=== PATIENT | female | born 1955 | race Caucasian/White ===

== ENCOUNTER 2022-04-23 19:46 | Emergency (ER) | payer MEDICARE, OTHER, SELFPAY ==
--- NOTE | 2022-04-23 19:49 | ED.URI ---
HPI - URI/Sore Throat General Chief Complaint: Upper Respiratory Infection Stated Complaint: Fatigue,Chills,Headache Time Seen by Provider: 04/23/22 19:49 Source: patient Mode of arrival: ambulatory Limitations: no limitations History of Present Illness HPI Narrative: Ms. Paez is a 66-year-old female patient presenting to the clinic today with complaints of fatigue, chills, headache and right upper quadrant pain that has resolved. She reports she took an at home UTI test and is concerned that she may have a urinary tract infection. States that she has had urinary incontinence and frequency for several days. Reports her other symptoms began this morning and have resolved Related Data Home Medications Medication Instructions Recorded Confirmed No Home Medications 04/23/22 04/23/22 Allergies Allergy/AdvReac Type Severity Reaction Status Date / Time hexachlorophene AdvReac Mild Hives Verified 04/23/22 20:06 ibuprofen AdvReac Mild RASH Verified 04/23/22 20:06 Review of Systems Review of Systems: Pertinent positives per HPI. Patient denies any rash, visual changes, dizziness, cough, runny nose, sore throat, shortness of breath, chest pain, palpitations, nausea, vomiting, diarrhea, constipation. PMFSH Family History Family History Other Cerebrovascular accident Diabetes mellitus Family history of arthritis Family history of heart disease in male family member before age 55 Social History Social History Smoking status: Never smoker Alcohol intake: current Comments At the time of my signature, I reviewed and agree with the nursing past medical, surgical, social, and family history. There is no relevant family history pertinent to the patient complaint. Exam Narrative: General: Well-developed, well nourished, in no apparent distress Head: Normocephalic, atraumatic Eyes: Pupils equally round and reactive to light bilaterally, EOM intact, sclera and conjunctive clear, no discharge, lids normal Ears: TMs intact and clear, ear canals clear, no drainage, grossly hearing normal. Nose: Nares patent, no discharge, no inflammation, no sinus tenderness. Mouth: Oropharynx without lesions or masses, good dentition, MMM. Neck: Supple, trachea midline, no enlargement of anterior or posterior cervical nodes, no thyroid masses or goiter palpable. Cardio: Regular rate and rhythm, s1 and s2 normal, no murmur appreciated. Resp: Clear to auscultation bilaterally anteriorly and posteriorly, no rhonchi, rales, wheezing or rubs Abdomen: Soft, pliable, bowel sounds present in all 4 quadrants, nontender to palpation, no suprapubic tenderness to palpation, no organomegaly, no CVAT tenderness Course Course Emergency Course: Portions of this record may have been created with voice recognition software. Level of Care: Express Care Visit Vital Signs Vital signs: Vital signs reviewed MDM - URI/Sore Throat MDM Narrative Medical decision making narrative: At the time of visit patient is resting comfortably on the exam table. UA shows 1+ blood in her urine. Negative for protein, leukocytes, or nitrates. COVID testing negative in the clinic. Patient reports right upper quadrant pain that has resolved as well as fatigue, chills, and headache that have all improved. Recommend follow-up with your PCP to investigate hematuria, urinary frequency, urgency patient has a history of bladder cancer in her family. Supportive measures were discussed with the patient and she voiced understanding of discharge instructions and agrees to treatment plan. Recommend going to the ED if symptoms worsen for further evaluation and treatment. Differential Diagnosis Differential diagnosis: Likely other (UTI, gallstones, viral syndrome) Discharge Plan Discharge Clinical Impression: Abdominal pain, acute, right upper
[2022-04-23 20:00] VITALS: BP 117/66; PULSE 85; RESP 18; TEMP 37.1; O2SAT 98
== END 2022-04-23 20:28 | disposition home or self-care (01) ==
LOC: EXPTROY 19:54
PROVIDERS: Emergency Provider Nurse Practitioner Family; PCP Family Medicine
DX: R10.11 Right upper quadrant pain (principal); R35.0 Frequency of micturition; R39.15 Urgency of urination; R53.83 Other fatigue; R31.29 Other microscopic hematuria
CPT/HCPCS: 81003; 99212; G0463

== ENCOUNTER 2022-05-07 14:45 | Outpatient (CLI) | payer MEDICARE, OTHER, SELFPAY ==
--- NOTE | ~2022-05-07 | CT_ITS ---
EXAMINATION: CT abdomen pelvis wo/w con DATE: 05/07/2022 15:46 INDICATION: Hematuria TECHNIQUE: Computed tomography (CT) of the abdomen and pelvis was performed without and subsequently with 130 CC Omnipaque 300 intravenous contrast. Automated exposure control and iterative reconstructi on technique were employed. Exam dose: 885.90 mGy-cm total exam DLP. COMPARISON: None. FINDINGS: The lung bases are clear of infiltrate or consolidation. There is minimal discoid atelectas is or scarring at the base of the lingula and lower lobes. Borderline heart size. No pericardial or pleural effusion. Small sliding hiatal hernia. 7.5 mm probable cyst of right hepatic lobe adjacent to gallbladder. The liver, gallbladder, bile duct s, pancreas, pancreatic duct and spleen are otherwise unremarkable. The adrenal glands are unremarkable. No urinary tract calculus or hydroureteronephrosis is detected. There is asymmetric fullness and mild to moderate hydronephrosis of the right renal collecting struct ures, possibly due to ureteropelvic disproportion. No hydronephrosis on the left. No filling defect o f the renal collecting structures, ureters on either side. No renal mass lesion is evident. No urinar y bladder mass lesion is noted. No evidence of appendicitis. No bowel obstruction, bowel wall thickening, pneumatosis or intraperiton eal free air. Small fat-containing umbilical hernia. There is degenerative change of the thoracic and lumbar spine including severe degenerative change at the apophyseal joints of the lumbar and lumbosacral area with associated grade 1 anterolisthesis at L3-4, L4-5 and L5-S1. . No suspicious osteolytic or osteoblastic lesions are noted. Bilateral hip osteoarthritis Degenerative changes of the thoracic and lumbar spine including prominent degenerative change at the apophyseal joints of the lumbar and lumbosacral area and associated grade 1 anterolisthesis at L3-4, L4-5 and L5-S1. Bilateral hip osteoarthritis. IMPRESSION: Mild to moderate right hydronephrosis, likely secondary to ureteropelvic disproportion No urinary tract calculus or urinary tract obstruction is noted otherwise Reviewed, dictated and finalized at [facility]. Reviewed, dictated and finalized at [facility]. IMPRESSION: Mild to moderate right hydronephrosis, likely secondary to uretero pelvic disproportion No urinary tract calculus or urinary tract obstruction is noted otherwise
[2022-05-07 15:24] LABS: Estimated Glomerular Filt Rate > 60
== END 2022-05-07 14:46 | disposition home or self-care (01) ==
PROVIDERS: PCP Family Medicine; Visit Provider Family Medicine
DX: R31.9 Hematuria, unspecified (principal); N13.30 Unspecified hydronephrosis
CPT/HCPCS: 74178; Q9967

== ENCOUNTER 2022-05-13 10:48 | Emergency (ER) | payer MEDICARE, OTHER, SELFPAY ==
[2022-05-13 10:57] VITALS: BP 116/69; PULSE 67; RESP 18; TEMP 36.3; O2SAT 98
--- NOTE | 2022-05-13 11:29 | ED.GENADULT ---
HPI - General Adult General Chief complaint: Skin/Abscess/Foreign Body Stated complaint: Rash History of Present Illness HPI narrative: Patient is a 66-year-old female who presents to the [facility] via POV for evaluation of a generalized rash that began 4 days ago. Additionally, patient reports that she had a abdominal CT with contrast dye on Saturday. Saturday afternoon she began experiencing nausea, vomiting, fatigue, blurry vision, and headache. She thought these sx were migraine related, took tylenol and went to bed. sx resolved. Saturday am she woke up with erythematous, pruritic rash. No relief with Benadryl. Hx of allergy to some pain med that produced a similar rash. Related Data Allergies Allergy/AdvReac Type Severity Reaction Status Date / Time iohexol AdvReac Intermediate Hives Verified 05/13/22 11:40 [From contrast - CT, X-RAY] hexachlorophene AdvReac Mild Hives Verified 05/13/22 10:57 ibuprofen AdvReac Mild RASH Verified 05/13/22 10:57 Review of Systems Review of Systems: Denies recent/new changes in soaps, perfumes, lotions, detergents, and shampoos. Denies working with chemicals. Denies new or changes in medications/foods. Pertinent negatives fever, chills, sweats, change in appetite, malaise, poor p.o. intake, recent weight loss, change in appetite, myalgias, lymphadenopathy, LOC, dizziness, burning sensation, petechiae, blistering, swelling, pruritus, streaking, warmth, lesions, easy bruising, lip/tongue/throat swelling, facial swelling, abdominal pain, nausea, vomiting, numbness, tingling, loss of sensation, cough, wheezing, chest pain, and heart palpitations/murmurs. [facility] Family History Family History Other Cerebrovascular accident Diabetes mellitus Family history of arthritis Family history of heart disease in male family member before age 55 Social History Social History Smoking status: Never smoker Alcohol intake: current Comments I have reviewed and agree with the patient's past medical, surgical, social, and family hx as documented by the RN. There is no relevant family history pertinent to the presenting complaint. Exam Narrative: GENERAL: Well-appearing, well-nourished, and in no acute distress. HEAD: Normocephalic, atraumatic. No facial swelling appreciated. EYES: PERRLA and EOMI. No evidence of erythema, swelling, or drainage. ENT: Nares clear, no rhinorrhea or epistaxis. Mucous membranes moist and pink. Uvula is midline without erythema and swelling. No evidence of obstruction, drooling, or pooling of secretions. Breath odor and voice normal. NECK: Supple. No Lymphadenopathy or nuchal rigidity appreciated. CHEST: Bilateral lung mejia are clear to auscultation. No respiratory distress. No evidence of cough or pleuritic cp upon examination. HEART: Regular rate and rhythm. No murmur, gallop, or rub heard. EXTREMITIES: Normal range of motion. No edema. SKIN: Warm, dry. Moderate generalized rash consistent with drug rash. No facial involvement. NEURO: No focal deficits. Alert and oriented x3. SPECIAL OBSERVATIONS: Smiling. Laughing. No evidence of discomfort. C/O of of proportion to exam. Course Course Emergency Course: Spoke with pharmacy at 1400 regarding prednisone rx. Changed RX from 20mg daily to 60mg daily. New RX: Prednisone 20 mg tabs: take 3 tabs by oral route daily x5 days. Disp 15 tabs 0RF Level of Care: Express Care Visit Vital Signs Vital signs: Vital Signs Temperature 97.3 F L 05/13/22 10:57 Pulse Rate 67 05/13/22 10:57 Respiratory Rate 18 05/13/22 10:57 Blood Pressure 116/69 05/13/22 10:57 Pulse Oximetry 98 05/13/22 10:57 Oxygen Delivery Room Air 05/13/22 10:57 Temperature 97.3 F L 05/13/22 10:57 Pulse Rate 67 05/13/22 10:57 Respiratory Rate 18 05/13/22 10:57 Blood Pressure 116/69 05/13/22
== END 2022-05-13 11:42 | disposition home or self-care (01) ==
PROVIDERS: Emergency Provider Nurse Practitioner Family; PCP Family Medicine
DX: R21 Rash and other nonspecific skin eruption (principal); T50.8X5A Adverse effect of diagnostic agents, initial encounter; M19.90 Unspecified osteoarthritis, unspecified site; Z85.820 Personal history of malignant melanoma of skin
CPT/HCPCS: 99213; G0463

== ENCOUNTER → 2022-08-02 15:00 | Outpatient (CLI) | payer MEDICARE, OTHER, SELFPAY ==
--- NOTE | ~2022-08-02 | XR_ITS ---
XR hip LT min 2V 08/02/2022 15:19 Indication: Left hip pain after recent fall Procedure: 2 views left hip Comparison: No prior studies for comparison. Findings: There is moderate osteoarthritis of the left hip. No fracture, subluxation or dislocation. Sacral foramen are symmetric. Surrounding osseous structures and soft tissues are unremarkable. Impression: 1: No acute fracture. 2: Moderate osteoarthritis of the left hip. Reviewed, dictated and finalized at [facility]. Impression: 1: No acute fracture. 2: Moderate osteoarthritis of the left hip.
== END ==
PROVIDERS: PCP Orthopaedic Surgery; Visit Provider Physician Assistant
DX: M16.12 Unilateral primary osteoarthritis, left hip (principal)
CPT/HCPCS: 73502

== ENCOUNTER → 2023-05-16 13:17 | Outpatient (CLI) | payer MEDICARE, OTHER, SELFPAY ==
--- NOTE | ~2023-05-16 | XR_ITS ---
XR knee RT 3V DATE: 05/16/2023 13:43 INDICATION: Right knee pain TECHNIQUE: AP, lateral, sunrise views COMPARISON: None FINDINGS: There is osteopenia. There is mild particular spurring at the patellofemoral joint consistent with mild osteoarthritis. Th ere is moderate loss of joint space and moderate periarticular spurring at the lateral compartment. Mild suprapatellar knee joint effusion is suggested. There is osteopenia. No fracture or dislocation, periosteal reaction or bone destruction. No radiopaq ue interarticular loose body or, calcinosis. IMPRESSION: Osteoarthritis, most prominent at the lateral compartment Suspected mild knee joint effusion Osteopenia Reviewed, dictated and finalized at [facility].
== END ==
PROVIDERS: PCP Family Medicine; Visit Provider Family Medicine
DX: M17.11 Unilateral primary osteoarthritis, right knee (principal); M85.861 Other specified disorders of bone density and structure, right lower leg
CPT/HCPCS: 73562

== ENCOUNTER 2024-01-23 19:34 | Emergency (ER) | payer MEDICARE, OTHER, SELFPAY ==
--- NOTE | 2024-01-23 19:36 | ED.SKABFB ---
HPI - Skin/Abscess/Foreign Bdy General Chief complaint: Skin/Abscess/Foreign Body Stated complaint: Body Rash Time Seen by Provider: 01/23/24 19:36 Source: patient Mode of arrival: ambulatory Limitations: no limitations History of Present Illness HPI narrative: Patient is a 68-year-old female that presents with rash to trunk since Saturday. Patient states it is not itchy but did spread to top of the thighs today. Denies any fever, chills, nausea, vomiting, diarrhea, congestion, sore throat, cough. Did use new soap this weekend at hotel. Related Data Home Medications Medication Instructions Recorded Confirmed aspirin 81 mg tablet,delayed 81 mg PO DAILY 09/03/22 01/23/24 release (Adult Aspirin Regimen) Allergies Allergy/AdvReac Type Severity Reaction Status Date / Time iohexol AdvReac Intermediate Hives Verified 01/23/24 19:46 [From contrast - CT, X-RAY] hexachlorophene AdvReac Mild Hives Verified 01/23/24 19:46 ibuprofen AdvReac Mild RASH Verified 01/23/24 19:46 Review of Systems Review of Systems: All systems reviewed & are unremarkable except as noted in HPI and below Constitutional: Constitutional: Denies body ache(s), Denies chills, Denies fatigue, Denies fever(s), Denies headache(s), Denies malaise and Denies weakness Eyes: Eyes: Denies blurry vision, Denies irritation and Denies loss of vision ENT: Denies otalgia, Denies headache(s), Denies nasal discharge, Denies sinus pain and Denies sore throat Cardiovascular: Cardiovascular: Denies chest pain, Denies irregular heart rhythm and Denies dyspnea Respiratory: Respiratory: Denies dyspnea Gastrointestinal: Gastrointestinal: Denies abdominal pain, Denies melena, Denies hematochezia, Denies diarrhea, Denies nausea and Denies vomiting Musculoskeletal: Musculoskeletal: Denies back pain, Denies myalgias and Denies arthralgias Integumentary/Breasts: Skin/Breast: Denies pruritus and Reports rash Neurologic: Denies headache(s), Denies loss of vision and Denies weakness Psychiatric: Psychiatric: Reports no additional psychiatric complaints Endocrine: Endocrine: Denies fatigue PMFSH Past Medical History Medical History High cholesterol Hx of thyroid cyst Lumbar spondylosis Surgical History Surgical History H/O lumpectomy H/O: Family History Family History Mother History of multiple strokes Father History of multiple strokes Bladder cancer Other Cerebrovascular accident Diabetes mellitus Family history of arthritis Family history of heart disease in male family member before age 55 Social History Social History Smoking status: Never smoker Alcohol intake: current Substance use: never Lack of Transportation: No Lack of Food: Never True Current Housing: I Have Housing Concerned About Future Housing: No Difficulty Paying Gas/Electric Bills: No Difficulty Paying for Meds: No Currently Unemployed: No Education: Bachelor's Degree Difficulty w/ Childcare or Family Care: No Living arrangements: with family Occupation/Education: occupation Gender identity (if verbalized by the patient): Female Comments At time of signature, agree with nursing past medical, surgical, social and family history. There is no relevant family history pertinent to the presenting complaint. Exam Const: General: cooperative, healthy appearing, comfortable, no acute distress and well nourished Nutritional Appearance: well nourished Orientation/consciousness: patient oriented x3 Limitations: no limitations HENMT: Head: normal to inspection, normocephalic and atraumatic Ears: hearing grossly normal bilaterally and external ears normal Face/Nose/Sinus: Normal external nose present, normal facial exam and
[2024-01-23 19:43] VITALS: BP 115/65; PULSE 79; RESP 18; TEMP 36.7; O2SAT 98
== END 2024-01-23 20:01 | disposition home or self-care (01) ==
PROVIDERS: Emergency Provider Nurse Practitioner Family; PCP Family Medicine
DX: T78.40XA Allergy, unspecified, initial encounter (principal); E78.00 Pure hypercholesterolemia, unspecified; M47.816 Spondylosis without myelopathy or radiculopathy, lumbar region; Z79.82 Long term (current) use of aspirin
CPT/HCPCS: 99213; G0463

== ENCOUNTER 2024-04-03 14:48 | Emergency (ER) | payer MEDICARE, OTHER, SELFPAY ==
--- NOTE | ~2024-04-03 | XR_ITS ---
EXAMINATION: XR foot LT min 3V DATE: 04/03/2024 16:37 INDICATION: Left foot pain. TECHNIQUE: 4 views of left foot were obtained. COMPARISON: None. FINDINGS: Bone alignment is normal. No fracture. There is moderate osteoarthritis of first metatarsop halangeal joint and mild osteoarthritis of some of the midfoot joints. There are enthesophytes at the posterior and plantar aspects of calcaneal tuberosity. IMPRESSION: 1. Polyarticular osteoarthritis. Reviewed, dictated and finalized at location [facility].
--- NOTE | ~2024-04-03 | XR_ITS ---
EXAMINATION: XR hip LT min 2V DATE: 04/03/2024 16:36 INDICATION: Left hip pain. TECHNIQUE: 2 views of left hip were obtained. COMPARISON: Left hip radiographs 08/02/2022 FINDINGS: There is lumbar levocurvature. No fracture. There is moderate left hip osteoarthritis. Oste itis pubis is noted. IMPRESSION: 1. Moderate left hip osteoarthritis. Reviewed, dictated and finalized at location [facility].
[2024-04-03 15:04] VITALS: BP 118/57; PULSE 83; RESP 16; TEMP 36.7; O2SAT 97
--- NOTE | 2024-04-03 17:46 | ED.BACK ---
HPI - Back Pain/Injury General Chief Complaint: Back Pain/Injury Stated Complaint: Left hip pain Time Seen by Provider: 04/03/24 17:02 Source: patient Mode of arrival: ambulatory Limitations: no limitations History of Present Illness HPI Narrative: This is a 68-year-old female who presents to the ED for chief complaint of chronic left foot pain and chronic left lower back pain. The back pain was flared up this week after doing some work outside. Reports foot pain has been going on for several years. Reports that it feels like a burning to the toes at times. She has concern for possible gout. Denies numbness, weakness, bowel or bladder problems, injuries to the back. States the pain is in the left lower back and radiates up into the muscles at times. 3rd complaint of bug bite to the left kaye that has been going on for 2 years . reports it feels like the venom from the bug bite 2 years ago sometimes will go down from the kaye into the ankle at times causing bumps and pain. Denies any further complaints Related Data Home Medications Medication Instructions Recorded Confirmed aspirin 81 mg tablet,delayed 81 mg PO DAILY 09/03/22 01/23/24 release (Adult Aspirin Regimen) Allergies Allergy/AdvReac Type Severity Reaction Status Date / Time iohexol AdvReac Intermediate Hives Verified 01/23/24 19:46 [From contrast - CT, X-RAY] hexachlorophene AdvReac Mild Hives Verified 01/23/24 19:46 ibuprofen AdvReac Mild RASH Verified 01/23/24 19:46 Review of Systems Review of Systems: All systems as dictated in HPI [facility] Past Medical History Medical History High cholesterol Hx of thyroid cyst Lumbar spondylosis Surgical History Surgical History H/O lumpectomy H/O: Family History Family History Mother History of multiple strokes Father History of multiple strokes Bladder cancer Other Cerebrovascular accident Diabetes mellitus Family history of arthritis Family history of heart disease in male family member before age 55 Social History Social History Smoking status: Never smoker Alcohol intake: current Substance use: never Lack of Transportation: No Lack of Food: Never True Current Housing: I Have Housing Concerned About Future Housing: No Difficulty Paying Gas/Electric Bills: No Difficulty Paying for Meds: No Currently Unemployed: No Education: Bachelor's Degree Difficulty w/ Childcare or Family Care: No Living arrangements: with family Occupation/Education: occupation Gender identity (if verbalized by the patient): Female Exam Narrative: GENERAL: Well-appearing, well-nourished, and in no acute distress. HEAD: Normocephalic, atraumatic. EYES: PERRLA and EOMI. ENT: Nares clear, no rhinorrhea or epistaxis. Mucous membranes moist. Oropharynx without tonsillar hypertrophy exudate or other lesions. NECK: Supple. No adenopathy or masses. CHEST: No respiratory distress. Clear to auscultation. No wheezes rales or rhonchi HEART: Regular rate and rhythm. No murmur heard. Normal peripheral pulses. ABDOMEN: Soft, nontender, nondistended, normal active bowel sounds. MSK: Normal range of motion. No edema. No midline spinal tenderness. 5/5 strength and sensation in the upper and lower extremities. ambulatory without difficulty SKIN: Warm, dry, no rash. NEURO: Alert and oriented x3. No focal deficits. PSYCH: Normal mood and affect. Course Vital Signs Vital signs: Vital Signs Temperature 98.1 F 04/03/24 15:04 Pulse Rate 83 04/03/24 15:04 Respiratory Rate 16 04/03/24 15:04 Blood Pressure 118/57 L 04/03/24 15:04 Pulse Oximetry 97 04/03/24 15:04 Temperature 98.1 F 04/03/24 15:04 Pulse Rate 83
[2024-04-03 18:11] VITALS: BP 127/62; PULSE 67; RESP 18; O2SAT 99
== END 2024-04-03 18:13 | disposition home or self-care (01) ==
PROVIDERS: Emergency Provider Physician Assistant; PCP Family Medicine
DX: M53.3 Sacrococcygeal disorders, not elsewhere classified (principal); M79.672 Pain in left foot; G89.29 Other chronic pain; E78.5 Hyperlipidemia, unspecified; M47.816 Spondylosis without myelopathy or radiculopathy, lumbar region
CPT/HCPCS: 73502; 73630; 99284

== ENCOUNTER 2024-10-30 11:23 | Emergency (ER) | payer MEDICARE, OTHER, SELFPAY ==
--- NOTE | ~2024-10-30 | XR_ITS ---
EXAMINATION: XR chest 2V DATE: 10/30/2024 12:12 INDICATION: Cough. TECHNIQUE: Frontal and lateral views of the chest were obtained on 3 radiographs. COMPARISON: CT abdomen and pelvis 05/07/2022 FINDINGS: There is no pneumonia, pleural effusion, or pneumothorax. The heart size is normal. IMPRESSION: 1. No acute cardiopulmonary disease. Reviewed, dictated and finalized at location A. [employer]
--- NOTE | 2024-10-30 11:27 | ED.URI ---
HPI - URI/Sore Throat General Chief Complaint: Upper Respiratory Infection Stated Complaint: cough Time Seen by Provider: 10/30/24 11:26 Source: patient Mode of arrival: ambulatory Limitations: no limitations History of Present Illness HPI Narrative: Haylie is a 68-year-old female patient presenting to the clinic today with complaints of a cough and chest discomfort with coughing. Initially stated her symptoms started on [place]. She reports she does not feel short of breath and her chest does not hurt unless she is coughing. Cough is nonproductive. Has had cough for a couple weeks and has exposure to mold in her home. States she did have a headache for the past few days. States that the headache is improving with Tylenol. Vomited 1 time on Saturday. No nausea, vomiting or diarrhea since. Denies any known fever, chills, or body aches. States that she tested for COVID and flu and was negative however her tested positive for influenza A. MD elicited complaint: cough, nasal congestion and other (Headache) Related Data Allergies Allergy/AdvReac Type Severity Reaction Status Date / Time iohexol (From contrast - CT, Allergy Intermediate Hives Verified 10/30/24 11:52 X-RAY) hexachlorophene Allergy Mild Hives Verified 10/30/24 11:52 ibuprofen Allergy Mild RASH Verified 10/30/24 11:52 Review of Systems Review of Systems: Pertinent positives per HPI. Patient denies any fever, chills, rash, visual changes, dizziness, shortness of breath, chest pain, palpitations, nausea, vomiting, diarrhea, constipation, abdominal pain, or any urinary issues. PMFSH Past Medical History Medical History Lumbar spondylosis Hx of thyroid cyst High cholesterol Surgical History Surgical History H/O: H/O lumpectomy Family History Family History Mother History of multiple strokes Father History of multiple strokes Bladder cancer Other Cerebrovascular accident Diabetes mellitus Family history of arthritis Family history of heart disease in male family member before age 55 Social History Social History Smoking status: Never smoker Alcohol intake: current Substance use: never Lack of Transportation: No Lack of Food: Never True Current Housing: I Have Housing Concerned About Future Housing: No Difficulty Paying Gas/Electric Bills: No Difficulty Paying for Meds: No Currently Unemployed: No Education: Bachelor's Degree Difficulty w/ Childcare or Family Care: No Living arrangements: with family Occupation/Education: occupation Gender identity (if verbalized by the patient): Female Comments At the time of my signature, I reviewed and agree with the nursing past medical, surgical, social, and family history. There is no relevant family history pertinent to the patient complaint. Exam Narrative: General: Well-developed, well nourished, in no apparent distress Head: Normocephalic, atraumatic Eyes: Pupils equally round and reactive to light bilaterally, EOM intact, sclera and conjunctive clear, no discharge, lids normal Ears: TMs intact and clear, ear canals clear, no drainage, grossly hearing normal. Nose: Nares patent, clear nasal discharge, no inflammation, no sinus tenderness. Mouth: Oral pharynx without lesions or masses, good dentition, MMM. Neck: Supple, trachea midline, no enlargement of anterior or posterior cervical nodes, no thyroid masses or goiter palpable. Cardio: Regular rate and rhythm, s1 and s2 normal, no murmur appreciated. Resp: Diminished in the bases otherwise clear, no rhonchi, rales, wheezing or rubs Course Course Emergency Course: Portions of this record may have been created with voice recognition software. Level of Care: Express Care Visit Vital Signs Vital signs: Vital Signs Temperature 36.1 C L 10/30/24 11:39 Pulse Rate 70 10/30/24 11:39 Respiratory Rate 16 10/30/24 11:39 Blood Pressure 117/61 10/30/24 11:39 Pulse Oximetry 98 10/30/24 11:39 Oxygen Delivery Room Air 10/30/24 11:39 Temperature 36.1 C L 10/30/24 11:39 Pulse Rate 70 10/30/24 11:39 Respiratory Rate 16 10/30/24 11:39 Blood Pressure 117/61 10/30/24 11:39 Pulse Oximetry 98 10/30/24 11:39 Oxygen Delivery Room Air 10/30/24 11:39 Vital signs reviewed MDM - URI/Sore Throat MDM Narrative Medical decision making narrative: At the time of visit patient is resting comfortably on the exam table. Patient appears to be nontoxic. Diagnostics: Chest x-ray was performed and negative for any acute cardiopulmonary process in the clinic today. Plan: I suspect patient has bronchitis. Prescription for albuterol inhaler, prednisone, and Tessalon Perles as sent to the pharmacy. Supportive measures were discussed with the patient and they voiced understanding discharge instructions and agrees to treatment plan. Return precautions reviewed Differential Diagnosis Differential diagnosis: Likely upper respiratory infection, otitis media, sinusitis, viral infection, bronchitis, influenza, pharyngitis and other (COVID) Discharge Plan Discharge Clinical Impression: Bronchitis Patient Disposition: Home, Self-Care Condition: Stable Instructions: Antibiotic Form, Acute Bronchitis (ED) Additional Instructions: Chest x-rays negative for any acute cardiopulmonary process. Take prescription medications only as prescribed albuterol inhaler, prednisone, and Tessalon Perles Increase fluids and stay well hydrated Tylenol/motrin for pain/fever Flonase and OTC antihistamines as directed Vicks vapor rub to open sinuses Sinus rinses for congestion Cepacol spray, cough drops, throat lozenges, warm tea with honey/lemon, gargle salt water to soothe throat BRAT diet for diarrhea Clear liquids x 24 hours then advance as tolerated for nausea/vomiting Go to the ED if you develop a worsening in your condition- high fever not controlled by Tylenol or Motrin, dehydration, weakness, lethargy, shortness of breath, or chest pain. Follow up with your PCP in 3-5 days if symptoms persist. Patient Language: [place] Prescriptions: New benzonatate 200 mg capsule 200 mg PO TID 7 Days Qty: 21 0RF prednisone 20 mg tablet 40 mg PO DAILY 5 Days Qty: 10 0RF albuterol sulfate 90 mcg/actuation HFA aerosol inhaler 2 puff inhalation Q4-6H PRN (Reason: shortness of breath or wheezing) 30 Days Qty: 8.5 0RF Follow-up/Referrals: Kiran Westbrook MD [Primary Care Provider] - Time of Disposition: 12:31 Quality NIH Nursing Documentation ED NIH nursing documentation: reviewed/agree
[2024-10-30 11:39] VITALS: BP 117/61; PULSE 70; RESP 16; TEMP 36.1; O2SAT 98
== END 2024-10-30 12:36 | disposition home or self-care (01) ==
PROVIDERS: Emergency Provider Nurse Practitioner Family; PCP Family Medicine
DX: J40 Bronchitis, not specified as acute or chronic (principal); E78.00 Pure hypercholesterolemia, unspecified; M47.816 Spondylosis without myelopathy or radiculopathy, lumbar region
CPT/HCPCS: 71046; 99213; G0463